=== PATIENT | male | born 1985 | race Caucasian/White ===

== ENCOUNTER 2016-06-30 15:12 | Emergency (ER) | payer OTHER ==
[~2016-06-30] VITALS: Ht 182.9 cm; Wt 117.9 kg
[2016-06-30] MEDS ORDERED: HYDROCODONE/APAP 10/325MG 1 EA TABLET ONE (15:46)
[2016-06-30] MEDS ORDERED: TDAP [DIPH/PERTUSSIS/TET] 0.5 ML VIAL IM ONE (16:00)
[2016-06-30] MEDS ORDERED: LIDOCAINE HCL/PF 1% 30 ML VIAL TP ONE (16:00)
[2016-06-30] MEDS ORDERED: HYDROCODONE/APAP 10/325MG 1 EA TABLET PO ONE (16:00)
[2016-06-30 18:04] VITALS: BP 140/94
== END 2016-06-30 18:05 | disposition home or self-care (01) ==
LOC: ER 15:16
DX: S61.213A Laceration without foreign body of left middle finger without damage to nail, initial encounter (principal); W26.0XXA Contact with knife, initial encounter; Y93.89 Activity, other specified; Y92.63 Factory as the place of occurrence of the external cause; Y99.0 Civilian activity done for income or pay
CPT/HCPCS: 73140-TC; A4606; A6402; A6403; J3490; Z7610

== ENCOUNTER 2016-07-13 15:38 | Emergency (ER) | payer OTHER ==
[~2016-07-13] VITALS: Ht 182.9 cm; Wt 120.2 kg
[2016-07-13 15:49] VITALS: BP 143/92
== END 2016-07-13 16:26 | disposition home or self-care (01) ==
LOC: ER 15:41
DX: S61.213D Laceration without foreign body of left middle finger without damage to nail, subsequent encounter (principal)
CPT/HCPCS: 99281; A4606; A6402; Z7610; Z7502